=== PATIENT | female | born 1990 | race Two or more races ===

== ENCOUNTER 2017-10-14 22:49 | Emergency (ER) | payer OTHER ==
[~2017-10-14] VITALS: Ht 149.9 cm; Wt 70.3 kg
[2017-10-15] MEDS ORDERED: LEVSIN/SL0.125 MG SL (06:51)
[2017-10-15] MEDS ORDERED: CIPRO500 MG PO (06:51)
== END 2017-10-15 07:21 | disposition home or self-care (01) ==
LOC: ER 22:49
DX: R10.32 Left lower quadrant pain (principal)

== ENCOUNTER → 2017-10-14 | Emergency (ER) | payer OTHER ==
[~2017-10-14] MED LIST: CIPRO500 MG PO; LEVSIN/SL0.125 MG SL
== END | disposition left against medical advice (07) ==
LOC: ER 02:20
DX: R10.12 Left upper quadrant pain (principal)